=== PATIENT | male | born 1955 | race African-American/Black ===

== ENCOUNTER 2016-02-16 11:09 | Emergency (ER) | payer MEDICAID, OTHER ==
[~2016-02-16] VITALS: Ht 170.2 cm; Wt 2.5 kg
[2016-02-16] MEDS ORDERED: NKM (11:19)
[2016-02-16 12:30] LABS: APPEARANCE,URINE CLEAR; KETONES,URINE 3+ (NEGATIVE); LEUKOCYTE ESTERASE ,URINE NEGATIVE (NEGATIVE); NITRITE,URINE NEGATIVE (NEGATIVE); PH,URINE 5 (4.5-8.0); PROTEIN,URINE NEGATIVE (NEGATIVE); UROBILINOGEN,URINE NORMAL MG/DL (0.0-1.0)
[2016-02-16 12:33] LABS: BASOPHILS % (AUTO) 2.3 % (0.0-2.0); EOSINOPHILS % (AUTO) 1.2 % (0.0-3.0); MEAN CORPUSCULAR HEMOGLOBIN 26.7 PG (27.0-31.0); MEAN CORPUSCULAR HGB CONC 31.7 G/DL (32.0-36.0); MEAN CORPUSCULAR VOLUME 84 FL (80-99); MEAN PLATELET VOLUME 7.8 FL (6.5-10.1); MONOCYTES % (AUTO) 5.9 % (1.0-10.0); NEUTROPHILS % (AUTO) 51.7 % (45.0-75.0); PLATELET COUNT 221 K/UL (150-450); RED BLOOD COUNT 5.98 M/UL (4.70-6.10); RED CELL DISTRIBUTION WIDTH 13.1 % (11.6-14.8); WHITE BLOOD COUNT 7.9 K/UL (4.8-10.8)
[2016-02-16 12:51] LABS: ALANINE AMINOTRANSFERASE 19 U/L (3-41); ANION GAP 16 (5-15); ASPARTATE AMINO TRANSFERASE 15 U/L (5-40); CALCIUM 9.9 mg/dL (8.6-10.2); CARBON DIOXIDE 25 mEQ/L (20-30); CHLORIDE 97 mEQ/L (98-107); CREATININE 0.9 mg/dL (0.7-1.2); GLOMERULAR FILTRATION RATE > 60 mL/min (>60); HEMOLYSIS 4; LIPASE 31 U/L (< 60); POTASSIUM 4.1 mEQ/L (3.4-4.9); SODIUM 138 mEQ/L (135-145); TOTAL PROTEIN 8.3 g/dL (6.6-8.7)
[2016-02-16 12:57] LABS: BACTERIA,URINE FEW /HPF; SQUAMOUS EPITHELIAL CELL,UR OCCASIONAL /LPF (NONE/OCC); WBC,URINE 0-2 /HPF (0 - 0)
[2016-02-16] MEDS ORDERED: Bacitracin Oint UD TOPIC ONE (13:00)
[2016-02-16] MEDS ORDERED: Oxycodone/Acetaminophen 5-325 ORAL ONE (13:00)
[2016-02-16] MEDS ORDERED: Mylanta II UD 30ml ORAL ONE (13:00)
[2016-02-16] MEDS ORDERED: metFORMIN 500mg tab ORAL STA (13:51)
[2016-02-16 15:01] VITALS: BP 143/68
[2016-02-16] MEDS ORDERED: Levofloxacin 500mg tab ORAL ONE (16:00)
[2016-02-16] MEDS ORDERED: LEVAQUIN500 MG ORAL (16:14)
[2016-02-16] MEDS ORDERED: LAMISIL15 GM EXT (16:14)
[2016-02-16] MEDS ORDERED: TRAMADOL HCL50 MG ORAL (16:14)
[2016-02-16] MEDS ORDERED: METFORMIN HCL500 M1 ORAL (16:15)
--- NOTE | 2016-02-16 16:27 | Diagnostic Imaging Report ---
Indications: Bilateral testicular pain x2 months Technique: Grayscale and duplex images of the scrotum Comparison:None Findings:The right testicle measures 4.1cm in length. It demonstrates normal echogenicity. Normal Doppler flow. The epididymis is prominent and hypervascular. It demonstrates a 3 mm cyst. There is a small right hydrocele and a small varicocele. The left testicle measures 3.9 cm in length. It demonstrates normal echogenicity and normal Doppler flow. Normal epididymis. There is small hydrocele and a small varicocele Impression: Evidence of right epididymitis. Correlate with clinical findings Bilateral small hydroceles Bilateral small varicoceles 3 mm right epididymal cyst versus spermatocele
[2016-02-16 16:30] VITALS: BP 140/72
--- NOTE | 2016-02-17 01:18 | Emergency Room Report ---
History of Present Illness General Chief Complaint: General Complaint Source: Patient Present Illness HPI 2 complaints: 1. Nail avulsion recently, nail now not normal R index. No pain, redness, swelling, numbness. (This was the reported CC). 2. Testicular, suprapubic and perineal tenderness with some swelling of testicles. No dysuria, fevers, d/c. Alleges 10/10 pain, constant, not radiating, pressure aching. 3. Diabetic, not on medicine for months - stopped when metformin increased to 1000 bid. Will not answer if polies. Allergies: Coded Allergies: No Known Allergies (Unverified , 02/16/16) Patient History Past Medical History: see triage record Social History: Denies: smoking Social History Narrative at home Reviewed Nursing Documentation: PMH: Agreed, PSxH: Agreed Nursing Documentation-PMH Past Medical History: No History, Except For Hx Diabetes: Yes Review of Systems All Other Systems: negative except mentioned in HPI Physical Exam Vital Signs Date Time Temp Pulse Resp B/P Pulse Ox O2 Delivery O2 Flow Rate FiO2 02/16/16 11:16 98.4 103 20 145/90 100 Room Air Sp02 EP Interpretation: reviewed, normal General Appearance: well appearing, no apparent distress - not appear in pain, GCS 15 Head: normocephalic Eyes: bilateral eye PERRL, bilateral eye normal inspection ENT: moist mucus membranes Neck: supple Respiratory: lungs clear, normal breath sounds Cardiovascular #1: regular rate, rhythm Cardiovascular #2: 2+ radial (R) Gastrointestinal: normal inspection, normal bowel sounds, no mass, non- distended, no hernia, other - pannus with some reaction with discomfort Genitourinary: penis normal, other - bilat testicle tenderness without significant swelling or erythema. No masses. Perineum without bogginess. Minimal reaction to palpation. Musculoskeletal: back normal, gait/station normal, normal range of motion Neurologic: alert, oriented x3 - grossly normal Skin: other - R index finger onycholysis post avulsion Medical Decision Making Diagnostic Impression: Primary Impression: Epididymitis Additional Impressions: Hyperglycemia Onycholysis ER Course Patient with 2 problems: onycholysis - no evidence of acute infection. testicle tenderness: epididymitis, mass, torsion,Fornier's gangrene. Exam against latter 2. Also probable hyperglycemia as nono-compliant. Exam inconsistent with reported pain. Will treat for pain. After motrin, c/o burning pain in epigastric regeon. Given mylanta and percocet. Elevated glucose. U/S c/w epididymitis. Started on levaquin. Refused recommended dose of metformin to treat hyperglycemia. Pain improved although reported same to RN. Patient stable for outpatient treatment and observation. Laboratory Tests Test 02/16/16 12:02 02/16/16 12:13 Urine Color Yellow Urine Appearance Clear Urine pH 5 (4.5-8.0) Urine Specific [place] 1.020 (1.005-1.035) Urine Protein Negative (NEGATIVE) Urine Glucose (UA) 4+ (NEGATIVE) H Urine Ketones 3+ (NEGATIVE) H Urine Occult Blood 1+ (NEGATIVE) H Urine Nitrite Negative (NEGATIVE) Urine Bilirubin Negative (NEGATIVE) Urine Urobilinogen Normal MG/DL (0.0-1.0) Urine Leukocyte Esterase Negative (NEGATIVE) Urine RBC 2-4 /HPF (0 - 0) H Urine WBC 0-2 /HPF (0 - 0) Urine Squamous Epithelial Cells Occasional /LPF Urine Bacteria Few /HPF (NONE) Neisseria gonorrhoeae RNA Pending White Blood Count 7.9 K/UL (4.8-10.8) Red Blood Count 5.98 M/UL (4.70-6.10) Hemoglobin 16.0 G/DL (14.2-18.0) Hematocrit 50.5 % (42.0-52.0) Mean Corpuscular Volume 84 FL (80-99) Mean Corpuscular Hemoglobin 26.7 PG (27.0-31.0) L Mean Corpuscular Hemoglobin Concent 31.7 G/DL (32.0-36.0) L Red Cell Distribution Width 13.1 % (11.6-14.8) Platelet Count 221 K/UL (150-450) Mean Platelet Volume 7.8 FL (6.5-10.1) Neutrophils (%) (Auto) 51.7 % (45.0-75.0) Lymphocytes (%) (Auto) 39.0 % (20.0-45.0) Monocytes (%) (Auto) 5.9 % (1.0-10.0) Eosinophils (%) (Auto) 1.2 % (0.0-3.0) Basophils (%) (Auto) 2.3 % (0.0-2.0) H Sodium Level 138 mEQ/L (135-145) Potassium Level 4.1 mEQ/L (3.4-4.9) Chloride Level 97 mEQ/L (98-107) L Carbon Dioxide Level 25 mEQ/L (20-30) Anion Gap 16 (5-15) H Blood Urea Nitrogen 12 mg/dL (7-23) Creatinine 0.9 mg/dL (0.7-1.2) Estimate Glomerular Filtration Rate > 60 mL/min (>60) Glucose Level 328 mg/dL (74-106) H Calcium Level 9.9 mg/dL (8.6-10.2) Total Bilirubin 1.0 mg/dL (0.0-1.2) Aspartate Amino Transferase (AST) 15 U/L (5-40) Alanine Aminotransferase (ALT) 19 U/L (3-41) Alkaline Phosphatase 89 U/L (40-129) Total Protein 8.3 g/dL (6.6-8.7) Albumin 4.3 g/dL (3.5-5.2) Globulin 4.0 g/dL Albumin/Globulin Ratio 1.0 (1.0-2.7) Lipase 31 U/L (< 60) CT/MRI/US Diagnostic Results CT/MRI/US Diagnostic Results : Imaging Test Ordered: scrotal U/S Impression Impression: Evidence of right epididymitis. Correlate with clinical findings Bilateral small hydroceles Bilateral small varicoceles 3 mm right epididymal cyst versus spermatocele Last Vital Signs Date Time Temp Pulse Resp B/P Pulse Ox O2 Delivery O2 Flow Rate FiO2 02/16/16 16:30 97.9 81 21 140/72 99 Room Air Status: improved Disposition: HOME, SELF-CARE Condition: Improved Scripts Metformin Hcl* (METFORMIN HCL*) 500 Mg Tablet 500 MG ORAL TWICE A DAY, #60 TAB Prov: Toni Smith M.D. 02/16/16 Tramadol Hcl* (ULTRAM*) 50 Mg Tablet 50 MG ORAL Q6H Y for For Pain, #12 TAB 0 Refills Prov: Toni Smith M.D. 02/16/16 Terbinafine (Lamisil At) 12 Gm Cream..g. 1 APPLIC EXT BID, #12 GM 2 Refills Prov: Toni Smith M.D. 02/16/16 Levofloxacin* (LEVAQUIN*) 500 Mg Tablet 500 MG ORAL DAILY, #7 TAB Prov: Toni Smith M.D. 02/16/16 Patient Instructions: Epididymitis, Hyperglycemia, Nail Ringworm Additional Instructions: You need to return to your MD in the next 2 days. You need to see an urologist. Tylenol OK for pain. Don't stop taking your diabetes medicine. Toni Smith M.D. Feb 17, 2016 01:18
== END 2016-02-16 16:33 | disposition home or self-care (01) ==
LOC: EMR 12:30
DX: N45.1 Epididymitis (principal); E11.65 Type 2 diabetes mellitus with hyperglycemia; L60.1 Onycholysis; N43.3 Hydrocele, unspecified; I86.1 Scrotal varices; N50.3 Cyst of epididymis
CPT/HCPCS: 36415; 76870; 80053; 81003; 82962; 83690; 85025; 87590; 99284

== ENCOUNTER 2016-02-29 21:05 | Emergency (ER) | payer OTHER ==
[~2016-02-29] VITALS: Ht 172.7 cm; Wt 104.3 kg
[~2016-02-29 21:05] MED LIST: LAMISIL15 GM EXT; LEVAQUIN500 MG ORAL; METFORMIN HCL500 M1 ORAL; NKM; TRAMADOL HCL50 MG ORAL
--- NOTE | 2016-02-29 21:41 | Emergency Room Report ---
History of Present Illness General Chief Complaint: Male Urogenital Problems Source: Patient Present Illness HPI This is a 60-year-old male with a history of diabetes. His been noncompliant with his metformin into last visit. He presents with chief complaint of right testicular pain. Similar pain when he had the last visit on February 15. Said is not better. He finished a course of Levaquin already. He denies any fever chills denies any nausea vomiting. Denies any dysuria or discharge. No other complaint. Allergies: Coded Allergies: No Known Allergies (Unverified , 02/16/16) Patient History Past Medical History: see triage record, old chart reviewed, DM Past Surgical History: other Pertinent Family History: none Social History: Denies: smoking Immunizations: other Reviewed Nursing Documentation: PMH: Agreed, PSxH: Agreed Nursing Documentation-PMH Hx Diabetes: Yes Review of Systems Eye: Denies: blurred vision, eye pain ENT: Denies: ear pain, nose congestion, throat swelling Respiratory: Denies: cough, shortness of breath Cardiovascular: Denies: chest pain, palpitations Gastrointestinal: Denies: abdominal pain, diarrhea, nausea, vomiting Genitourinary: Reports: pain Musculoskeletal: Denies: back pain, joint pain Skin: Denies: rash Neurological: Denies: headache, numbness Endocrine: Denies: increased thirst, increased urine Hematologic/Lymphatic: Denies: easy bruising All Other Systems: negative except mentioned in HPI Physical Exam Vital Signs Date Time Temp Pulse Resp B/P Pulse Ox O2 Delivery O2 Flow Rate FiO2 02/29/16 21:21 98.1 109 18 120/84 96 Room Air vitals normal except for mild tachycardia Sp02 EP Interpretation: reviewed, normal General Appearance: well appearing, no apparent distress, alert Head: normocephalic, atraumatic Eyes: bilateral eye EOMI, bilateral eye PERRL ENT: hearing grossly normal, normal pharynx Neck: full range of motion, supple, no meningismus Respiratory: chest non-tender, lungs clear, normal breath sounds Cardiovascular #1: regular rate, rhythm, no murmur Gastrointestinal: normal bowel sounds, non tender, no mass, no organomegaly, no bruit, non-distended Genitourinary: normal inspection, penis normal, other - Mild tenderness to the right epididymis. No testicular tenderness. No torsion. Musculoskeletal: back normal, gait/station normal, normal range of motion Psychiatric: mood/affect normal Skin: warm/dry Medical Decision Making Diagnostic Impression: Primary Impression: Epididymitis Additional Impression: Hyperglycemia due to type 2 diabetes mellitus Qualified Codes: E11.65 - Type 2 diabetes mellitus with hyperglycemia ER Course Patient presents with epididymitis. No evidence of for infection. This may be fungal secondary to his noncompliance with his medication. Blood sugars are very elevated. We'll discharge home. He need to see a urologist. Last Vital Signs Date Time Temp Pulse Resp B/P Pulse Ox O2 Delivery O2 Flow Rate FiO2 02/29/16 21:21 98.1 109 18 120/84 96 Room Air Status: improved Disposition: HOME, SELF-CARE Condition: Stable Scripts Fluconazole (FLUCONAZOLE) 100 Mg Tablet 100 MG ORAL DAILY, #7 TAB 0 Refills Prov: ROBERT NARAYANAN M.D. 02/29/16 Ibuprofen* (MOTRIN*) 600 Mg Tablet 600 MG ORAL THREE TIMES A DAY, #30 TAB 0 Refills Prov: ROBERT NARAYANAN M.D. 02/29/16 Patient Instructions: Epididymitis Additional Instructions: Followup with your DrJacques within a week. You would need a referral to see a urologist. Return if symptom worsen. ROBERT NARAYANAN M.D. Feb 29, 2016 21:41
[2016-02-29 22:02] LABS: APPEARANCE,URINE CLEAR; KETONES,URINE NEGATIVE (NEGATIVE); LEUKOCYTE ESTERASE ,URINE NEGATIVE (NEGATIVE); NITRITE,URINE NEGATIVE (NEGATIVE); PH,URINE 5 (4.5-8.0); PROTEIN,URINE NEGATIVE (NEGATIVE); UROBILINOGEN,URINE NORMAL MG/DL (0.0-1.0)
[2016-02-29] MEDS ORDERED: IBUPROFEN600 MG ORAL (22:12)
[2016-02-29] MEDS ORDERED: FLUCONAZOLE100 MG ORAL (22:12)
[2016-02-29 22:28] VITALS: BP 133/92
== END 2016-02-29 22:28 | disposition home or self-care (01) ==
LOC: EMR 21:39
DX: N45.1 Epididymitis (principal); E11.65 Type 2 diabetes mellitus with hyperglycemia
CPT/HCPCS: 81003; 82962; 99282

== ENCOUNTER 2017-01-20 14:23 | Emergency (ER) | payer MEDICAID, OTHER ==
[~2017-01-20] VITALS: Ht 172.7 cm; Wt 106.6 kg
[~2017-01-20 14:23] MED LIST changes: +FLUCONAZOLE100 MG ORAL; +IBUPROFEN600 MG ORAL
[2017-01-20] MEDS ORDERED: METFORMIN HCL500 M1 ORAL (14:36)
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
[2017-01-20] MEDS ORDERED: Methocarbamol 750mg tab ORAL ONE (15:00)
[2017-01-20] MEDS ORDERED: Norco 10mg/325mg tab ORAL ONE (15:00)
[2017-01-20] MEDS ORDERED: ROBAXIN-750750 MG PO (15:14)
[2017-01-20] MEDS ORDERED: NORCO 5-325 TA1 EACH ORAL (15:14)
[2017-01-20 17:03] VITALS: BP 127/75
--- NOTE | 2017-01-21 09:57 | Diagnostic Imaging Report ---
Indication: Back pain, trauma Technique: 3 views of the lumbosacral spine. Comparison: 12/27/2010 Findings: Alignment is intact. No fracture. No evidence of bone destruction. The discs are maintained. Impression: Negative examination.
--- NOTE | 2017-01-21 10:05 | Diagnostic Imaging Report ---
Indication: Trauma with pain Technique: 3 views of the cervical spine. Comparison: None Findings: There is a small unfused spur at the anterior-inferior margin of C5. C7 is incompletely visualized on this study. The remainder the cervical vertebrae are normal. Alignment is otherwise unremarkable. No fracture. No bone destruction. Impression: Small unfused spur at C5 to 6. C7 incompletely visualized. Otherwise negative.
== END 2017-01-20 17:12 | disposition home or self-care (01) ==
LOC: EMR 16:17
DX: S13.9XXA Sprain of joints and ligaments of unspecified parts of neck, initial encounter (principal); S33.5XXA Sprain of ligaments of lumbar spine, initial encounter; V43.12XA Car passenger injured in collision with other type car in nontraffic accident, initial encounter; Y92.410 Unspecified street and highway as the place of occurrence of the external cause; I10 Essential (primary) hypertension; E11.9 Type 2 diabetes mellitus without complications; J45.909 Unspecified asthma, uncomplicated
CPT/HCPCS: 72020; 72040; 99284